=== PATIENT | male | born 1945 | race Caucasian/White ===

== ENCOUNTER 2022-05-13 22:44 | Observation (INO) ==
[2022-05-13] MEDS ORDERED: DilTIAZem 50 MG/50 ML IV.SOLN IVC SCH (23:15)
[2022-05-14 00:18] LABS: Basophils # 0.1 K/mcL (0.0-0.2); Basophils % 0.8 %; Eosinophils # 0.6 K/mcL (0.0-0.6); Eosinophils % 7.5 %; Hematocrit 37.5 % (37.5-50.1); Hemoglobin 12.3 g/dL (12.9-16.9); Immature Granulocytes % 0.2 % (0-4); Lymphocytes # 2.2 K/mcL (0.6-4.6); Lymphocytes % 26.4 %; Mean Corpuscular HGB Conc 32.8 g/dL (31.6-35.5); Mean Corpuscular Hemoglobin 30.2 pg (28.0-33.3); Mean Corpuscular Volume 92.1 fL (83.0-100.0); Mean Platelet Volume 9.7 fL (9.4-12.4); Monocytes # 0.7 K/mcL (0.0-1.3); Monocytes % 8.1 %; Neutrophils # 4.7 K/mcL (1.6-8.9); Platelet Count 238 K/mcL (140-400); Red Blood Count 4.07 M/mcL (4.19-5.50); Red Cell Distribution Width 13.3 % (11.5-14.5); White Blood Count 8.3 K/mcL (4.3-11.1)
[2022-05-14 00:20] LABS: Prothrombin Time 10.7 Seconds (9.4-12.1)
[2022-05-14 00:23] LABS: Activated Partial Thrombo Time 33.8 Seconds (26.0-36.0)
[2022-05-14] MEDS ORDERED: 0.9 % Sodium Chloride 1,000 ML IV ONE (00:24)
[2022-05-14 00:28] LABS: BUN/Creatinine Ratio 15 (6-26); Blood Urea Nitrogen 31 mg/dL (8-23); Carbon Dioxide 23 mEq/L (23-29); Chloride 106 mEq/L (98-107); Glucose 140 mg/dL (70-105); Osmolality,Calculated 295 (280-300); Sodium 138 mEq/L (136-145); Troponin I < 0.03 ng/mL (< 0.04); eGFR For African Americans 39 (> 60); eGFR For Non-African Americans 32 (> 60)
[2022-05-14 00:40] LABS: Thyroid Stimulating Hormone 11.181 mcIU/mL (0.340-5.600)
[2022-05-14 01:02] LABS: Influenza A PCR Negative (Negative); Influenza B PCR Negative (Negative); Resp. Syncytial Virus PCR Negative (Negative)
[2022-05-14 01:05] LABS: SARS-CoV-2 by PCR (In House) Negative (Negative)
[2022-05-14] MEDS ORDERED: *HR* Heparin 5,000 UNIT/ML VIAL IVP ONE (01:13)
[2022-05-14] MEDS ORDERED: *HR* Heparin 5,000 UNIT/ML VIAL IVP PRN ×2 (01:13)
[2022-05-14] MEDS ORDERED: Ondansetron 4 MG/2 ML VIAL IVP PRN (02:09)
[2022-05-14] MEDS ORDERED: Melatonin 3 MG TABLET PO PRN (02:09)
[2022-05-14] MEDS ORDERED: Acetaminophen 325 MG TABLET PO PRN (02:09)
[2022-05-14] MEDS ORDERED: Naloxone 0.4 MG/ML INJ IVP PRN (02:09)
[2022-05-14] MEDS: Heparin 25,000UNIT/250ML 1/2NS 25,000 UNIT/250 ML IV.SOLN IVC SCH (02:37)
[2022-05-14] MEDS: Ipratropium/Albuterol Neb 3 ML IH SCH ×3 (02:54→11:22)
[2022-05-14 03:12] LABS: Heparin anti-factor XA UFH < 0.04 IU/mL (0.30-0.70); Prothrombin Time 11.1 Seconds (9.4-12.1)
[2022-05-14 05:33] LABS: Basophils # 0.1 K/mcL (0.0-0.2); Basophils % 0.9 %; Eosinophils # 0.7 K/mcL (0.0-0.6); Eosinophils % 9.4 %; Hematocrit 36.6 % (37.5-50.1); Hemoglobin 11.9 g/dL (12.9-16.9); Immature Granulocytes % 0.4 % (0-4); Lymphocytes # 1.9 K/mcL (0.6-4.6); Lymphocytes % 23.5 %; Mean Corpuscular HGB Conc 32.5 g/dL (31.6-35.5); Mean Corpuscular Hemoglobin 30.2 pg (28.0-33.3); Mean Corpuscular Volume 92.9 fL (83.0-100.0); Mean Platelet Volume 9.6 fL (9.4-12.4); Monocytes # 0.5 K/mcL (0.0-1.3); Monocytes % 6.8 %; Neutrophils # 4.7 K/mcL (1.6-8.9); Platelet Count 226 K/mcL (140-400); Red Blood Count 3.94 M/mcL (4.19-5.50); Red Cell Distribution Width 13.2 % (11.5-14.5); White Blood Count 7.9 K/mcL (4.3-11.1)
[2022-05-14 05:46] LABS: BUN/Creatinine Ratio 19 (6-26); Blood Urea Nitrogen 31 mg/dL (8-23); C-Reactive Protein < 5 mg/L (Less than 10); Calcium 8.7 mg/dL (8.6-10.3); Carbon Dioxide 20 mEq/L (23-29); Chloride 111 mEq/L (98-107); Chol/HDL Ratio 3.3 (0-4.9); Cholesterol 118 mg/dL (< 200); Glucose 119 mg/dL (70-105); HDL Cholesterol 36 mg/dL (40-59); LDL Cholesterol,Calculated 69 mg/dL (< 100); Magnesium 1.9 mg/dL (1.6-2.6); Osmolality,Calculated 296 (280-300); Sodium 139 mEq/L (136-145); Triglycerides 64 mg/dL (< 150); eGFR For African Americans 50 (> 60); eGFR For Non-African Americans 41 (> 60)
[2022-05-14 05:53] LABS: Troponin I 0.71 ng/mL (< 0.04)
[2022-05-14] MEDS ORDERED: Perflutren Lipid Microsphere 1.3 ML in 0.9 % Sodium Chloride 8.7 ML IVP PRN (05:58)
[2022-05-14] MEDS: Aspirin Enteric Coated 81 MG Tablet PO SCH (08:27)
[2022-05-14] MEDS: Nicotine 14 MG PATCH.TD24 TD SCH (13:30)
[2022-05-15] MEDS: Heparin 25,000UNIT/250ML 1/2NS 25,000 UNIT/250 ML IV.SOLN IVC SCH (03:17)
[2022-05-15] MEDS ORDERED: Tiotropium 10 INH DOSE IH ONE (07:53)
[2022-05-15] MEDS ORDERED: Isosorbide MONOnitrate (24 HR) 60 MG TAB.ER.24H PO SCH (09:00)
[2022-05-15] MEDS: Nicotine 14 MG PATCH.TD24 TD SCH (09:52)
[2022-05-15] MEDS: Aspirin Enteric Coated 81 MG Tablet PO SCH (09:53)
[2022-05-15] MEDS ORDERED: Tiotropium 10 INH DOSE IH SCH (10:00)
[2022-05-15 11:57] VITALS: BP 108/56; PULSE 67; TEMP 97.8; O2SAT 97
[2022-05-15] MEDS ORDERED: *HR* Rivaroxaban 15 MG TABLET PO SCH (13:00)
== END 2022-05-15 15:41 | disposition home or self-care (01) ==
LOC: 2NENU 22:44 → EMEROOARM 22:44 → SUATTDRO 05-14 06:33 → 2NENU 05-14 08:17
PROVIDERS: ADMIT Internal Medicine; ATTEND Internal Medicine